=== PATIENT | male | born 1975 | race Caucasian/White ===

== ENCOUNTER 2017-01-17 11:59 | Emergency (ER) | payer OTHER ==
[~2017-01-17] VITALS: Ht 172.7 cm; Wt 81.8 kg
[~2017-01-17 11:59] MED LIST: FLOXIN OTIC SOLN5 ML LEFT EAR; MOTRIN800 MG PO; NAPROSYN500 MG PO; VICODIN 5-3001 EACH PO
[2017-01-17] MEDS ORDERED: KEFLEX500 MG PO (13:18)
[2017-01-17 13:31] VITALS: BP 148/72
== END 2017-01-17 13:32 | disposition home or self-care (01) ==
LOC: EME 11:59
PROC: 0H97XZZ Drainage of Abdomen Skin, External Approach (ICD-10-PCS; principal; 2017-01-17)
DX: L02.214 Cutaneous abscess of groin (principal)
CPT/HCPCS: 99281; 99283